=== PATIENT | male | born 1945 | race Caucasian/White ===

== ENCOUNTER → 2017-01-14 | Outpatient (CLI) | payer OTHER, BC ==
[~2017-01-14] VITALS: Ht 167.6 cm; Wt 108.9 kg
[2017-01-14] VITALS (8 sets, daily range): BP systolic 129–176; BP diastolic 54–99
[~2017-01-14] MED LIST: ACETAMINOPHEN325 M1 PO; ALLOPURINOL 30300 M1 PO; ALLOPURINOL PO; ASPIRIN EC81 M1 PO; ASPIRIN325 PO; B COMPLEX1 EAC1 PO; B-100 COMPLEX1 EAC1 PO; CALCIUM OYSTER500 MG PO; CARAC30 GM TP; CIALIS2.5 MG PO; DOXYCYCLINE 10100 MG PO; ECONAZOLE 1% CR30 G1 TP; EFFIENT10 MG PO; FISH OIL 1,001000 M2 PO; FISH OIL 1,2001 EAC4 PO; FISHOIL PO; K-DUR 20 MEQ T20 MEQ PO; LEVOTHROID PO; LEVOTHROID100 MC1 PO; LEVOTHYROXINE0.05 MG PO; LOVENOX SQ; MAXZIDE-25 MG1 EACH PO; MULTIVITAMINS PO; NAFTIN45 GM TOP; NARDIL15 MG PO; NEXIUM 40 MG CA40 M1 PO; NITROGLYCERIN0.4 MG SUBLING; OSTEO BI-FLEX1 EAC1 PO; OXECTA5 MG PO; OXYCONTIN10 M1 PO; PLAVIX 75 MG TA75 M1 PO; QUINU10 PD PO; TESTONE CI200 MG/1 M IM; TRIAMTERENE W/1 EACH; TRIAMTERENE-HC1 EAC3 PO; VITAMIN D3400 UNIT PO; VITAMIN D400 UNI1 PO; VOLTAREN GEL 1100 G2 TOP; VOLTAREN100 GM TOP
[2017-01-14 09:40] LABS: HEMATOCRIT 46.6 % (42.0-52.0); HEMOGLOBIN 15.7 gm/dL (14.0-18.0); MCH 32.4 pg (26.0-34.0); MCHC 33.8 g/dL (28.0-37.0); MCV 95.9 fL (80.0-100.0); RBC 4.86 mil/uL (4.50-6.00); RDW 15.3 % (10.5-14.5); WBC 6.7 thou/uL (4.0-11.0)
[2017-01-14 09:46] LABS: CALCIUM 8.9 mg/dL (8.5-10.1); CREATININE 1.2 mg/dL (0.7-1.3); POTASSIUM 4.1 mmol/L (3.5-5.1)
[2017-01-14 09:53] LABS: PROTIME 9.8 Seconds (9.3-11.4)
== END ==
LOC: ULTRA 09:11
PROVIDERS: Family Medicine
DX: N28.1 Cyst of kidney, acquired (principal); R79.89 Other specified abnormal findings of blood chemistry

== ENCOUNTER → 2017-03-11 | Outpatient (CLI) | payer OTHER, BC ==
[~2017-03-11] VITALS: Ht 167.6 cm; Wt 108.0 kg
[~2017-03-11] MED LIST changes: +ALLOPURINOL 10100 M1 PO; +FISH OIL PO; +QUINAPRIL 20 MG20 MG PO; +SYNTHROID50 MCG PO; +VITAMIN D3 PO
--- NOTE | ~2017-03-11 | P ---
[facility] [place] [address] PROCEDURE REPORT Name: MATHEUS WALKERRADHA HONG Room #: REG [facility] Vanesa#: [id number] Admission: 03/11/17 Attend Phys: Philip Fuentes Discharge: Date of : 43 Report #: [id number] THIS REPORT FOR: //name// CC: Philip Kellogg DATE OF SERVICE: 03/11/2017 PROCEDURE PERFORMED: Colonoscopy with biopsies. HISTORY OF PRESENT ILLNESS: The patient is a 71-year-old male with a history of colon polyps and a family history of colon cancer in his brother. He is here for routine followup, denies any symptoms. DESCRIPTION OF PROCEDURE: The risks and benefits of the procedure were explained to the patient, those risks including but not limited to bleeding, perforation, the risk of sedation. He understood these risks and gave informed consent. Sedation was given using propofol per anesthesia. Next, a digital rectal exam was initially performed, which was normal. Next, using a standard Fujinon colonoscope, the scope was placed in the patient's anus and advanced under direct vision to the cecum. The overall prep was good. Cecum and ileocecal valve were normal in appearance. In the ascending colon, there were two 3-4 mm sessile polyps, both were removed by cold forceps. A few scattered diverticula were also noted. Transverse colon and descending colon were normal. Few diverticula were noted in the sigmoid colon, otherwise normal. The rectal mucosa was normal. On retroflexion, no abnormalities were noted. The scope was then withdrawn and the procedure terminated. The patient tolerated the procedure well. IMPRESSION: 1. Two colonic polyps. 2. Diverticulosis. 3. Otherwise, normal colonoscopy. RECOMMENDATIONS: 1. Await biopsy results. 2. Repeat colonoscopy in 5 years. Thank you for allowing me to participate in his care. By: [id number] Philip Kiran MD /nt
--- NOTE | ~2017-03-11 | S ---
[facility] [place] [address] SURGICAL PATH RPT PROCEDURE Name: RADHA MÉNDEZ HAL Room #: REG [facility] M.Rafaela.#: [id number] Admission: 03/11/17 Date of : 43 Discharge: Report #: [id number] Path Case #: [id number] PATHOLOGY REPORT COLLECTION DATE: 03/11/2017 RECEIVED DATE: 03/11/2017 SUBMITTING PHYS: Dr. Philip Kiran OTHER PHYS: Dr. Julius Kellogg SPECIMEN(S) RECEIVED: A.Polyp at ascending x2 * * * * * * * * * * * * FINAL DIAGNOSIS: Polyp, at ascending colon, endoscopic biopsy: - Minute tubular adenoma. - Negative for high grade dysplasia. (IUV:mml; 03/14/2017) PATHOLOGIST: Cady Perez M.D. REPORT ELECTRONICALLY SIGNED BY: Cady Perez M.D. DATE/TIME: 03/14/2017 16:21 * * * * * * * * * * * * GROSS PATHOLOGY: The specimen is received in formalin, labeled "Radha Méndez and polyp at ascending colon", several polypoid soft tissue 0.6 x 0.4 x 0.2 cm in aggregate, entirely submitted in A1. (SWS; 03/11/2017) CLINICAL HISTORY: Screening INITIAL CPT CODE(S): A; 37619 Professional services performed by [facility] at [facility] [place] [address] Technical services performed by [facility] at [address] [place] [address], [address], [place] [address]. [facility] [address] [place] [address] SURGICAL PATH RPT PROCEDURE Name: RADHA MÉNDEZ Room #: REG ELISA Lovell.#: [id number] Admission: 03/11/17 Date of : 43 Discharge: Report #: [id number] Path Case #: [id number] [address] PHONE: [phone] DIRECTOR: Govind Parsons M.D. * * * END OF REPORT * * *
== END | disposition home or self-care (01) ==
LOC: GI 07:07
DX: Z09 Encounter for follow-up examination after completed treatment for conditions other than malignant neoplasm (principal); Z87.19 Personal history of other diseases of the digestive system; D12.2 Benign neoplasm of ascending colon; K57.30 Diverticulosis of large intestine without perforation or abscess without bleeding; I12.9 Hypertensive chronic kidney disease with stage 1 through stage 4 chronic kidney disease, or unspecified chronic kidney disease; N18.9 Chronic kidney disease, unspecified; I25.10 Atherosclerotic heart disease of native coronary artery without angina pectoris; E78.00 Pure hypercholesterolemia, unspecified; E03.9 Hypothyroidism, unspecified; B19.10 Unspecified viral hepatitis B without hepatic coma; K21.9 Gastro-esophageal reflux disease without esophagitis; M19.90 Unspecified osteoarthritis, unspecified site; F31.9 Bipolar disorder, unspecified; G47.33 Obstructive sleep apnea (adult) (pediatric); Z95.5 Presence of coronary angioplasty implant and graft; Z98.890 Other specified postprocedural states; Z87.891 Personal history of nicotine dependence; Z88.2 Allergy status to sulfonamides; Z80.0 Family history of malignant neoplasm of digestive organs; Z91.041 Radiographic dye allergy status; Z88.8 Allergy status to other drugs, medicaments and biological substances; Z79.899 Other long term (current) drug therapy
CPT/HCPCS: 62110; 62900

== ENCOUNTER → 2017-06-02 | Outpatient (CLI) | payer OTHER, BC ==
[~2017-06-02] VITALS: Ht 165.1 cm; Wt 104.3 kg
[~2017-06-02] MED LIST changes: +CLEMASTINE FU2.68 MG PO; +ECONAZOLE 1% CR30 G1 TOP; +NAFTIN45 G1 TOP; +OMEPRAZOLE 20 M20 M1 PO
--- NOTE | ~2017-06-02 | HPC ---
[facility] [address] [address] [address] PAIN MANAGEMENT CONSULTATION Name: RADHA TEMPLE Room #: REG ELISA Liliya.#: [id number] Admission: 06/02/17 Attend Phys: Ti Horner MD Discharge: Date of : 43 Report #: [id number] THIS REPORT FOR: //name// CC: Julius Horner DATE OF SERVICE: 06/02/2017 DATE OF REGISTRATION: 06/02/2017 The patient is here today at the request of Dr. Julius Kellogg. He has pain in his low back on the right hand side. Pain is worse with bending and walking and prolonged standing. He has been treated previously by Interventional Radiology for polycystic kidneys. He has had cyst drained and this seems to relieve much of his lumbosacral pain. He reports that he has 1 cyst on this right side that is very high just below his diaphragm and they have been unable to aspirate or drain that cyst and he believes that that continues to provide one component of his pain. He has a sharp pronounced constant pain in that area, which he believes is related to the cyst. He has a secondary pain, which is low back. Sitting is okay, when he gets up and is walking, pain increases dramatically. He relates some of his back pain to an injury that occurred in 8th grade when a pole crumbled beneath him and he slipped and fell to the ground. He was hospitalized as a result of that injury. He had another injury at the age of 17, moving an engine block and has had chronic back pain ever since. He has had no previous surgeries. He has had no previous epidural injections. He uses diclofenac cream. He has not seen a chiropractor. He has been treated by a physical therapy with massage and this has been helpful. 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 He has had previous massage where he says a popping sensation has made his back feel better. He has had what he also described as sciatic spells, the last spelled was 5 years ago or so. He relates some of this perhaps to an altered gait from heel spurs that were not treated immediately. He has pain also from gait associated pain in his right knee. He had right knee replacement in 2011. Occasional pain will radiate to his anterior right thigh, worse on the left. MEDICATIONS: Plavix, Nardil, vitamin D3, fish oil, B complex, calcium. PAST MEDICAL HISTORY: Hypertension, heart disease with stent placement in 2015, hepatitis B, hyperthyroidism, gastritis, osteoarthritis, history of severe depression and bipolar illness which was treated finally and successfully 30 years ago with Nardil, the MAO inhibitor, he remains on it and has had to be cautious with the use of other medications in taking of anesthesia. [address] [address] PAIN MANAGEMENT CONSULTATION Name: RADHA TEMPLE Room #: REG ELISA Alexis#: [id number] Admission: 06/02/17 Attend Phys: Ti Horner MD Discharge: Date of : 43 Report #: [id number] PAST SURGICAL HISTORY: Hemorrhoidectomy in 1980, anal fistula repair in 1981, plantar fascia release, right foot in 1992, bilateral hernia repair in 2000, surgery on the right eye in 2008, right knee replacement in 2011, drainage of cysts throughout 2012, 2017, heart stent in 2016. 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 He has 80 acre farm that has been in the family for years. He continues to live and work on that farm. REVIEW OF SYSTEMS: Positive for periodic headaches, blurred vision, some hearing loss and ringing chronic sinusitis, dyspnea on exertion, dyspnea lying flat, frequent diarrhea, nocturia, and a history of depression as described. PHYSICAL EXAMINATION: GENERAL: A 71-year-old gentleman, pleasant, alert and oriented. No signs of overmedication or depression today during visit and during our exam. CHEST: Clear. CARDIAC: Rhythm is regular. ABDOMEN: Soft. EXTREMITIES: Examination of the spine reveals tenderness across the low back, tenderness in the costovertebral angle. Straight leg raising is mildly positive in the anterior thigh. Deep tendon reflexes are hyporeflexic at the knees bilaterally. The right knee is sensitive to the hammer. The most notable finding is marked tenderness over the left sacroiliac joint. No pain with LYNNETTE test. IMPRESSION: 1. Chronic back pain with some component of radiculopathy. 2. Sacroiliac joint tenderness. RECOMMENDATIONS: 1. Consider sacroiliac injection, both for diagnostic and therapeutic purposes. 2. Consider epidural injection for diagnostic and therapeutic purposes. Recommend that he go off his Plavix before treatment. We will have preauthorization performed. Followup visit planned once his Plavix has been discontinued for 7 days for injection. <ELECTRONICALLY SIGNED> By: Ti Horner MD 07/27/17 [id number] [id number] Ti Horner MD /nt
[2017-06-02 15:09] VITALS: BP 127/80
== END ==
LOC: PAIN 07:21
DX: M54.16 Radiculopathy, lumbar region (principal); M53.3 Sacrococcygeal disorders, not elsewhere classified; I10 Essential (primary) hypertension; I51.89 Other ill-defined heart diseases; E03.9 Hypothyroidism, unspecified; K75.89 Other specified inflammatory liver diseases; Z95.5 Presence of coronary angioplasty implant and graft; Z98.890 Other specified postprocedural states

== ENCOUNTER 2018-01-21 21:27 | Emergency (ER) | payer OTHER, BC ==
[~2018-01-21] VITALS: Ht 167.6 cm; Wt 109.8 kg
[2018-01-21 21:57] LABS: ABSOLUTE NEUTROPHILS 6.6 thou/uL (1.4-8.2); BASOPHILS 1.1 % (0.0-2.0); EOSINOPHILS 2.5 % (0.0-3.0); HEMATOCRIT 43.2 % (42.0-52.0); HEMOGLOBIN 14.5 gm/dL (14.0-18.0); LYMPHOCYTES 23.1 % (24.0-44.0); MCH 32.2 pg (26.0-34.0); MCHC 33.5 g/dL (28.0-37.0); MONOCYTES 9.5 % (1.0-8.0); PLATELET COUNT 262 thou/uL (150-400); POLYS 63.8 % (36.0-66.0); WBC 10.3 thou/uL (4.0-11.0)
[2018-01-21 22:11] LABS: CALCIUM 9.5 mg/dL (8.5-10.1); CREATININE 1.8 mg/dL (0.7-1.3); POTASSIUM 4.3 mmol/L (3.5-5.1)
[2018-01-21 22:16] LABS: ALBUMIN 3.5 g/dL (3.4-5.0); APTT 25.2 Seconds (24.5-32.8); PROTIME 9.7 Seconds (9.3-11.4); TOTAL BILIRUBIN 0.3 mg/dL (<0.1-1.0)
[2018-01-21] MEDS ORDERED: DOXYCYCLINE 10100 MG PO (22:52)
== END 2018-01-21 23:11 | disposition home or self-care (01) ==
LOC: ER 21:27
PROVIDERS: Emergency Medicine
DX: L03.115 Cellulitis of right lower limb (principal); K64.9 Unspecified hemorrhoids; Z87.891 Personal history of nicotine dependence; Z91.041 Radiographic dye allergy status; Z88.8 Allergy status to other drugs, medicaments and biological substances; Z88.2 Allergy status to sulfonamides; Z88.6 Allergy status to analgesic agent; Z95.5 Presence of coronary angioplasty implant and graft; Z96.651 Presence of right artificial knee joint; Z98.52 Vasectomy status

== ENCOUNTER → 2019-01-03 | Outpatient (CLI) | payer OTHER, BC | LOC: NUC 08:26 | DX: M25.561 Pain in right knee (principal); Z96.651 Presence of right artificial knee joint ==

== ENCOUNTER → 2019-07-26 | Outpatient (CLI) | payer OTHER, BC | LOC: SJCVC 10:02 | DX: R94.31 Abnormal electrocardiogram [ECG] [EKG] (principal); I25.10 Atherosclerotic heart disease of native coronary artery without angina pectoris; I10 Essential (primary) hypertension; M79.604 Pain in right leg; M79.605 Pain in left leg; C61 Malignant neoplasm of prostate; E11.9 Type 2 diabetes mellitus without complications; F32.9 Major depressive disorder, single episode, unspecified; Z95.818 Presence of other cardiac implants and grafts; Z87.891 Personal history of nicotine dependence; Z79.899 Other long term (current) drug therapy; Z72.89 Other problems related to lifestyle; Z79.82 Long term (current) use of aspirin ==

== ENCOUNTER → 2019-07-31 | Outpatient (CLI) | payer OTHER, BC | LOC: SJCVCIMAG 08:58 | DX: I73.9 Peripheral vascular disease, unspecified (principal); M79.605 Pain in left leg; M79.604 Pain in right leg; I25.10 Atherosclerotic heart disease of native coronary artery without angina pectoris; F32.9 Major depressive disorder, single episode, unspecified; Z85.46 Personal history of malignant neoplasm of prostate; Z87.891 Personal history of nicotine dependence; Z72.89 Other problems related to lifestyle; Z79.82 Long term (current) use of aspirin; Z79.899 Other long term (current) drug therapy; Z96.651 Presence of right artificial knee joint ==

== ENCOUNTER → 2019-11-15 | Outpatient (CLI) | payer OTHER, BC | LOC: SJCVC 13:55 | PROVIDERS: ATTEND Internal Medicine | DX: R94.31 Abnormal electrocardiogram [ECG] [EKG] (principal); I25.10 Atherosclerotic heart disease of native coronary artery without angina pectoris; E78.5 Hyperlipidemia, unspecified; Z79.899 Other long term (current) drug therapy; Z87.891 Personal history of nicotine dependence ==

== ENCOUNTER → 2019-11-22 | Outpatient (CLI) | payer OTHER, BC | LOC: SJCVCIMAG 08:22 | PROVIDERS: ATTEND Internal Medicine | DX: I49.3 Ventricular premature depolarization (principal); I25.10 Atherosclerotic heart disease of native coronary artery without angina pectoris; I10 Essential (primary) hypertension; E11.9 Type 2 diabetes mellitus without complications; Z87.891 Personal history of nicotine dependence; Z79.82 Long term (current) use of aspirin; Z79.899 Other long term (current) drug therapy; Z98.61 Coronary angioplasty status ==

== ENCOUNTER → 2020-04-23 | Outpatient (CLI) | payer OTHER, BC | LOC: RAD 08:48 | PROVIDERS: ATTEND Internal Medicine | DX: J98.11 Atelectasis (principal); J98.4 Other disorders of lung ==

== ENCOUNTER → 2020-12-08 | Outpatient (CLI) | payer OTHER, BC ==
[~2020-12-08] MED LIST changes: +CLARITIN10 M3 PO; +HYDROCODONE-IB1 EAC3 PO; +MULTI VITAMIN1 EACH PO; +NORCO7.5 PO; +VITAMIN D31250 MC1 PO
[2020-12-08 11:27] LABS: MCH 32.2 pg (26.0-34.0); MCHC 33.3 g/dL (28.0-37.0); MCV 96.6 fL (80.0-100.0); RBC 4.04 mil/uL (4.50-6.00); RDW 13.9 % (10.5-14.5); WBC 6.1 thou/uL (4.0-11.0)
[2020-12-08 11:36] LABS: ALBUMIN 3.4 g/dL (3.4-5.0); CALCIUM 9.3 mg/dL (8.5-10.1); CREATININE 1.2 mg/dL (0.7-1.3); POTASSIUM 4.8 mmol/L (3.5-5.1)
[2020-12-08 11:57] LABS: INR 0.95; PROTIME 10.4 Seconds (10.5-12.1)
[2020-12-08 12:00] LABS: URINE BILIRUBIN NEGATIVE (Negative); URINE BLOOD NEGATIVE (Negative); URINE CLARITY CLEAR; URINE COLOR YELLOW; URINE GLUCOSE-RANDOM* NEGATIVE (Negative); URINE KETONES NEGATIVE (Negative); URINE LEUKOCYTES-REFLEX NEGATIVE (Negative); URINE NITRITE-REFLEX NEGATIVE (Negative); URINE PROTEIN (DIPSTICK) NEGATIVE (Negative); URINE UROBILINOGEN 0.2 E.U./dl (0.2-1.0)
== END ==
LOC: PAC 10:40
PROVIDERS: ATTEND Orthopaedic Surgery
DX: M17.9 Osteoarthritis of knee, unspecified (principal)

== ENCOUNTER 2020-12-22 11:43 | Inpatient (IN) | payer OTHER, BC ==
[~2020-12-22] VITALS: Ht 162.6 cm; Wt 108.9 kg
--- NOTE | ~2020-12-22 | HC ---
[facility] [place] [address] CONSULTATION Name: RADHA TEMPLE Room #: 442-P [facility] IN M.R.#: [id number] Admission: 12/22/20 Attend Phys: Ethan Vaughn MD Discharge: 12/23/20 Date of : 43 Report #: [id number] THIS REPORT FOR: cc: Julius Kellogg MD FAAFP FACEP KelloggJulius granados MD FAAFP FACEP Julius Kellogg MD FAAFP FACEP ~ cc: Ethan Vaughn MD CHIEF COMPLAINT: Left knee osteoarthritis, now postoperative day #1 status post total knee arthroplasty by Dr. Vaughn. HISTORY OF PRESENT ILLNESS: The patient is doing exceptionally well. On postoperative day #1, minimal pain. He has excellent range of motion and is ____ to go home later today. The pain he had preoperatively is gone. He has had minimal discomfort since his surgery. PAST MEDICAL HISTORY: Arthritis, depression, renal cysts, coronary artery disease, mercury poisoning. PAST SURGICAL HISTORY: Vasectomy in 1978, hemorrhoids in 1980, anal fistula in 1981, plantar fascial release in 1992, bilateral herniorrhaphies in 2000, right eye lens replacement in 2008, total right knee replacement in 2011, kidney cyst drained, cardiac stents in 2015, coronary angiography in 2017. MEDICATIONS: Potassium chloride, K-Dur 20 mEq 1 p.o. q.i.d., allopurinol 100 mg 3 p.o. daily, Synthroid 100 mcg p.o. daily, B complex one daily, nitroglycerin 0.4 mg sublingually every 5 minutes p.r.n. chest pain, Maxzide 25 mg 2 p.o. daily, multivitamin 1 p.o. daily, Plavix 75 mg p.o. daily, fish oil 1 p.o. daily, quinapril 20 mg p.o. daily, Voltaren gel 100 g topically q.i.d. p.r.n., omeprazole 20 mg p.o. daily, econazole 1% cream topically to affected skin daily p.r.n., Nardil 15 mg p.o. daily, clemastine fumarate 2.68 mg p.o. daily as directed, nafcillin 45 grams topically as needed p.r.n. rash. ALLERGIES: TO RED DYE, EPINEPHRINE, SULFA, YELLOW DYE, DEMEROL, TYLENOL, SODIUM BENZOATE, AND TYRAMINE. SOCIAL HISTORY: He is , lives in [place], [place] on a farm. 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 Smoked cigarettes in the distant past. Drinks ethanol socially. REVIEW OF SYSTEMS: Generally, no fever, chills, nausea, vomiting, diarrhea. EYES: No visual changes. ENT: No problems with hearing, swallow, taste or smell. CARDIOVASCULAR: No chest pain or palpitations. RESPIRATORY: No difficulty breathing. GASTROINTESTINAL: No abdominal pain. [address] [address] CONSULTATION Name: RADHA TEMPLE Room #: 442-P [facility] IN M.R.#: [id number] Admission: 12/22/20 Attend Phys: Ethan Vaughn MD Discharge: 12/23/20 Date of : 43 Report #: [id number] GENITOURINARY: No problems urinating. MUSCULOSKELETAL: Now postoperative day #1, post left total knee arthroplasty. NEUROLOGIC: No paresis, paralysis, paresthesias. PSYCHIATRIC: Depression, has been well controlled with Nardil. He has held that for the last couple of weeks. Plan is to restart that this evening. DERMATOLOGIC: No disturbing lesions or rash. Remainder of system review is negative. PHYSICAL EXAMINATION: VITAL SIGNS: Temperature 98.2, pulse 91, respirations 20, blood pressure 124/74, oxygen saturation on room air is 96%. GENERAL: He is in no acute distress, pain free at the time of my exam, engaging in conversation. HEENT: Pupils equal, round, reactive to light and accommodation. Extraocular muscles intact. Pharynx unremarkable. NECK: Supple. CARDIOVASCULAR: S1, S2. CHEST: Clear. ABDOMEN: Soft, nontender. SKIN: Operative dressing is clean and dry with a Polar cooling unit attached. NEUROLOGIC: Intact without focal deficit. ASSESSMENT: 1. Arthritis. 2. Postoperative day #1, status post left total knee arthroplasty. 3. Hypertension. 4. Coronary artery disease. 5. History of depression, using Nardil. RECOMMENDATIONS: The patient is doing exceptionally well. Continue current approach. Okay for discharge later the day if he continues to do well and agree with starting Nardil this evening. See me on 01/07/2021, already has appointment. Thank you for the consultation. By: [id number] Julius Kellogg MD, FAAFP, FACEP /nt
[2020-12-22 14:13] VITALS: BP 148/78
[2020-12-22 18:00] VITALS: BP 140/62
--- NOTE | 2020-12-22 19:36 | NUR ---
Pt transferred to unit from PACU. Pt a&ox4. Pain controlled with prn pain meds. Home Cpap at bedside. On 2L O2. Polar care in place. IVF infusing. Dr Kellogg notified that patient is in the hospital. Stated he will see patient in the am. Home meds sent to unit by pharmacy. Handed to roger RN. Call light within reach. Fall precautions in place. Report given to roger RN.
[2020-12-22 20:15] VITALS: BP 136/82
--- NOTE | 2020-12-23 01:48 | NUR ---
ASSESSED AT START OF SHIFT, PT A&OX4. ADMISSION DONE AND PT ORIENTED TO THE UNIT. IV INTACT WITH FLUIDS INFUSING. URINAL AT BEDISDE. JUAN DAVID DRESSING, POLAR PACK AND TEDHOSE IN PLACE. PT WEARS CPAP AT HS. FALL PREC IN PLACE. DENEIS N/V AND RATES PAIN 1/10. CALL LIGHT AT REACH AND WILL CONT TO MONNITOR.
[2020-12-23 03:20] VITALS: BP 100/55
[2020-12-23 09:00] VITALS: BP 124/74
[2020-12-23] MEDS ORDERED: TRI-BUFFERED A325 M1 PO (11:41)
[2020-12-23] MEDS ORDERED: MS CONTIN15 MG PO (11:43)
--- NOTE | 2020-12-23 11:49 | O ---
[facility] [place] [address] OPERATIVE REPORT Name: RADHA TEMPLE Room #: 442-P ADM IN M.R.#: [id number] Admission: 12/22/20 Attend Phys: Ethan Vaughn MD Discharge: Date of : 43 Report #: [id number] THIS REPORT FOR: cc: Julius Kellogg MD, FAAFP, FACEP, Douglas MD FAA Ethan Pena MD ~ DATE OF SERVICE: 12/22/2020 PREOPERATIVE DIAGNOSIS: Left knee osteoarthritis. POSTOPERATIVE DIAGNOSIS: Left knee osteoarthritis. PROCEDURE: Left total knee arthroplasty using Navio robotic assistance. SURGEON: Ethan Vaughn MD. PROCESS CONTROL TECHNICIAN: Leslie Cabello PA-C. INDICATION FOR PROCESS CONTROL TECHNICIAN: Throughout the case, extensive retraction, manipulation of the knee was required. This is was supported by my public health assistant. ANESTHESIA: LMA with adductor canal block. IMPLANTS: A Dinero and Nephew size 6 Journey II BCS Oxinium femur, size 4 tibia, size 9 polyethylene and size 32 patella. TOURNIQUET TIME: 57 minutes. ESTIMATED BLOOD LOSS: 25 mL COMPLICATIONS: None. SPECIMENS: None. CONDITION UPON LEAVING THE OR: Stable. INDICATIONS FOR PROCEDURE: The patient is a 75-year-old gentleman with severe left knee osteoarthritis. He had failed conservative measures for this and after discussion with him, he elected for left total knee arthroplasty. DESCRIPTION OF PROCEDURE: Risks, benefits, alternatives, complications were discussed in detail with the patient including but not limited to risk of anesthesia, risk of damage to nerves, arteries, blood vessels, risk for infection, bleeding, DVT, PE, and need for reoperation. Informed consent was obtained from the patient. Left knee was appropriately marked in the preoperative holding area. IV Ancef was given for preoperative antibiotics. [address] [address] OPERATIVE REPORT Name: RADHA TEMPLE Room #: 442-P [facility] IN .R.#: [id number] Admission: 12/22/20 Attend Phys: Ethan Vaughn MD Discharge: Date of : 43 Report #: [id number] Adductor canal block was placed by anesthesia. He was brought to the operating room and placed in supine position on the operating table. LMA anesthesia was induced without complication. Tourniquet was placed on the left thigh. Left lower extremity was prepped and draped in normal sterile fashion. Timeout was performed properly identifying the patient and procedure as well as the instrumentation and implants. All in the operating room were in agreement. Left lower extremity was exsanguinated, tourniquet was inflated. Tourniquet time was 57 minutes. Standard midline approach to the knee was made with 10 blade through the skin. Dissection was taken down sharply to the fascia and deep flaps were developed medially and laterally. Fresh 10 blade was used to make a medial parapatellar arthrotomy and the knee was inspected. There was severe medial compartment osteoarthritis with moderate lateral and patellofemoral compartment osteoarthritis. ACL and PCL were removed sharply. Reference pins were placed in the femur and the tibia. The knee was digitally mapped using the [employer] robotic system. Intraoperative plan was made. We sized the size 6 femur, size 4 tibia and a 10 spacer. After acceptance of the intraoperative plan, the distal femoral cut was made with Navio bur. Distal femoral cutting block was pinned in place and chamfer cuts were made. Attention was turned to the tibia. Remainder of the menisci removed with Bovie cautery. Tibial resection guide was pinned in place using Navio for placement and tibial resection was made. Flexion and extension gaps were then checked and found to be tight medially in extension. Medial osteophyte was then removed from the medial tibia and this balanced the knee well. Tibia was sized, found to be a size 4. Size 4 tibial trial was placed, pinned and punched. Size 6 femoral trial was placed, box cut was made. This was then trialed with a size 9 polyethylene. Size 9 polyethylene demonstrated 1-2 mm laxity medially and laterally throughout range of motion of the knee. A 9 mm of bone was resected from the posterior surface of the patella and a size 32 patellar trial button was placed. Knee was taken through range of motion, found to be stable, found to have good patellar tracking. Trial components were removed. Bone ends were thoroughly irrigated with normal saline. Final size 4 tibia, size 6 Journey II BCS Oxinium femur and a size 32 patella were cemented in place using standard cementation techniques. While the cement cured, a periarticular injection consisting of morphine, ropivacaine, epinephrine, Toradol was placed around the knee joint capsule. After the cement cured, tourniquet was deflated. Hemostasis was obtained with Bovie cautery. Final size 9 polyethylene was placed. A gram of vancomycin was placed deep in the joint. Fascia was closed with 0 Vicryl. Skin was closed with 2-0 Vicryl, skin staple and a JUAN DAVID dressing was applied. The patient tolerated this procedure well and went to recovery room under care of anesthesia postoperatively. <ELECTRONICALLY SIGNED> By: Ethan Vaughn MD 12/23/20 [id number] [id number] Ethan Vaughn MD /nt
[2020-12-23 12:44] VITALS: BP 124/74
--- NOTE | 2020-12-23 13:36 | NUR ---
ASSESSMENT: CM REVIEWED CHART AND SPOKE WITH PT AT THE BEDSIDE. PT IS ALERT AND ORIENTED X4. PT REPORTS THAT HE LIVES IN A HOUSE WITH HIS . PT REPORTS HE HAS NO STEPS TO ENTER THE HOME AND ALL HIS NEEDS CAN BE MET ON THE MAIN LEVEL. PT REPORTS THAT HE HAS A WALKER, CANE, AND CRUTCHES AT HOME IF NEEDED. PT IS S/P L TKA. PT REPORTS THAT HIS SON IS IN TOWN FROM [place] AND STAYING UNTIL THE END OF THE WEEK TO HELP ASSIST. PT REPORTS THAT HE HAS OUTPATIENT THERAPY ALREADY ARRANGED FOR TUESDAY AT [facility] AT 3PM. PT HAS HX JOSIE IN THE PAST. PT PLANS ON DOING OUTPATIENT THERAPY ARRANGED AT DISCHARGE. CM WILL CONTINUE TO FOLLOW TO ASSIST NEEDED.
--- NOTE | 2020-12-23 14:27 | NUR ---
PT ASSESSED AT START OF SHIFT. WORKED W/ THERAPY AND DOING WELL. MINIMAL PAIN. UP IN CHAIR FOR SEVERAL HOURS. WILL START THERAPY IN AM. DISCHARGING NOW W/ ALL BELONGINGS.
== END 2020-12-23 14:28 | disposition home or self-care (01) | DRG 470 ==
LOC: OR → 4S 17:14 → OR 17:15 → 4S 12-23 14:28 → OR 01-07 16:39
PROVIDERS: ADMIT Orthopaedic Surgery; ATTEND Orthopaedic Surgery
DX: M17.12 Unilateral primary osteoarthritis, left knee (principal); I25.10 Atherosclerotic heart disease of native coronary artery without angina pectoris; I10 Essential (primary) hypertension; F32.9 Major depressive disorder, single episode, unspecified; Z88.2 Allergy status to sulfonamides; Z88.8 Allergy status to other drugs, medicaments and biological substances; Z91.041 Radiographic dye allergy status
CPT/HCPCS: 10102; 50010; 50101; 50415; 50954; 51130; 51225; 51320; 51412; 52001; 52282; 53000; 53078; 53365; 56527; 56528; 57095; 57103; 57110; 57127; 57180; 62110; 62900; 64039; 70005